=== PATIENT | female | born 1990 ===

== ENCOUNTER 2021-04-24 12:51 | Emergency (ER) | payer SELFPAY ==
[2021-04-24 12:53] VITALS: BP 119/84; PULSE 831; RESP 15; TEMP 35.8; O2SAT 100; BMI 21.0
== END 2021-04-24 14:00 | disposition left against medical advice (07) ==
LOC: ED 14:02
DX: Z53.21 Procedure and treatment not carried out due to patient leaving prior to being seen by health care provider (principal)